=== PATIENT | male | born 1990 | race Caucasian/White ===

== ENCOUNTER 2022-09-02 11:35 | Emergency (ER) | payer SELFPAY ==
[2022-09-04 14:10] LABS: ESTIMATED GFR 93 mL/min (>60)
== END 2022-09-02 13:00 | disposition home or self-care (01) ==
LOC: FB.ED 11:35
DX: R07.89 Other chest pain (principal); R06.2 Wheezing
CPT/HCPCS: 36415; 80053; 84484; 85025; 85379; 86140; 93005; 99285